=== PATIENT | female | born 1980 | race Caucasian/White ===

== ENCOUNTER 2016-08-05 23:34 | Emergency (ER) | payer OTHER ==
--- NOTE | ~2016-08-05 | ER ---
PATIENT'S NAME: CORBIN HERNANDEZ [facility] AGE: 36 Y [address] ROOM: [place] [address] LOCATION: [facility] ADMIT DATE: 08/05/2016 ER/Outpatient Report DISCHARGE DATE: 08/06/2016 FAMILY PHYSICIAN: Jane Hitchcock MD ATTENDING PHYSICIAN: Oswaldo Rodarte Admission date and time documented in the medical record. I saw the patient at 2350 hours. CHIEF COMPLAINT: Dysuria. HISTORY OF PRESENT ILLNESS: This is a 36-year-old female who comes in with dysuria since . She thinks she has possible urinary tract infection. She has had chronic UTIs since December of last year. No fever, chills, sweats, or rigors. No cough, colds, or flus. HOME MEDICATIONS: See attached medication list. ALLERGIES: NONE. SOCIAL HISTORY: Nonsmoker and nondrinker. SIGNIFICANT PAST MEDICAL HISTORY: Recurrent urinary tract infections, hypertension, and hypothyroidism. OPERATIONS: None. REVIEW OF SYSTEMS: All systems reviewed by me are negative with the exception of those discussed in the history of present illness. PHYSICAL EXAMINATION: VITAL SIGNS: Temperature 97.9 tympanic, pulse 94, respirations 16, blood pressure 143/80, and O2 saturation on room air is 94%. LUNGS: Clear. HEART: Regular. ABDOMEN: Soft, nontender. Good bowel tones. LABORATORY DATA: PATIENT'S NAME: CORBIN HERNANDEZ [facility] AGE: 36 Y [address] ROOM: [place] [address] LOCATION: [facility] ADMIT DATE: 08/05/2016 ER/Outpatient Report DISCHARGE DATE: 08/06/2016 FAMILY PHYSICIAN: Jane Hitchcock MD ATTENDING PHYSICIAN: Oswaldo Rodarte Urinalysis showed 5-10 wbc's, negative rbc's, 20-50 epithelial cells, few bacteria per high-powered field, positive nitrites on dipstick. IMPRESSION: Urinary tract infection. PLAN: The patient dismissed home. Observation. Activity as tolerated. Fluids. Empty bladder often. Continue present home medications and care. Pyridium 200 mg 3 times a day #18, Cipro 500 mg b.i.d. #14. Follow up with personal physician as needed. Discussion ensued with the patient concerning my findings and recommendations, she understands. MD CARLTON MATHIAS/modl /[id number] d: 08/06/16 0138 t: 08/06/16 1821, OUTPATIENT REPORT
[~2016-08-05 23:34] MED LIST: ACETAMINOPHEN325 MG PO; APNO TOP; FEOSOL325 MG PO; LEVOTHROID (S112 MCG PO; LEVOTHROID (S125 MCG PO; LEVOTHROID (S150 MCG PO; MOTRIN800 MG PO; PERCOCET 5-3251 EACH PO; PRENATAL 1+1)(P1 TAB PO; SURFAK240 MG PO
[2016-08-05 23:46] LABS: BLOOD URINE NEGATIVE /UL (NEGATIVE); COLOR URINE AMBER (YELLOW); GLUCOSE URINE NEGATIVE (NEGATIVE); KETONE URINE NEGATIVE (NEGATIVE); LEUKOCYTES URINE 25 /UL (NEGATIVE); NITRITE URINE POSITIVE (NEGATIVE); PROTEIN URINE NEGATIVE (NEGATIVE); SPEC GRAVITY URINE 1.015 (1.003-1.035); TURBIDITY URINE 1+ (CLEAR); UROBILINOGEN URINE 4 mg/dL (NORMAL)
[2016-08-05 23:53] LABS: BACTERIA URINE FEW (NEGATIVE); EPITHELIAL URINE 20-50 #/HPF (NEGATIVE); RBC URINE NEGATIVE #/HPF (NEGATIVE)
== END 2016-08-06 00:19 ==
LOC: GMED 23:34
PROVIDERS: Emergency Medicine
DX: N39.0 Urinary tract infection, site not specified (principal); I10 Essential (primary) hypertension; E03.9 Hypothyroidism, unspecified; Z79.899 Other long term (current) drug therapy

== ENCOUNTER → 2016-11-30 | Outpatient (CLI) | payer OTHER ==
--- NOTE | ~2016-11-30 | ECHO ---
Transthoracic Echocardiography Report (TTE) Demographics Patient Name CORBIN HERNANDEZ Date of Study 11/30/2016 E Patient Number [id number] Visit Number [id number] Date of 1980 Room Number Gender Female Number Age 36 year(s) Referring Naldo Avila MD Counter Hop [place] [employer] [facility], Physician RVT Physician Interpreting Bridgette Castaneda Route Deliverer Physician MD Supervising Ordering Naldo Avila MD, MD/MLP Physician Nurse Stress [employer] Conclusions Summary The estimated left ventricular ejection fraction is 60%. Normal left ventricle size and function. Normal right ventricle structure and function. No significant valvular abnormalities. Procedure Type of Study TTE procedure:2D Echocardiogram. Procedure Date Date: 11/30/2016 Start: 09:12 AM Study Location: Echo Lab Technical Quality: Adequate visualization Indications:Edema. Appropriate Use Criteria: 9 Patient Status: Routine Rhythm: NSR HR: 70 bpm BP: 142/89 mmHg M-Mode/2D Measurements LV Diastolic Dimension: 4.24 cm LV Systolic Dimension: 3.32 cm LV Septum Diastolic: 0.74 cm LV PW Diastolic: 0.77 cm AO Root Dimension: 2.4 cm Cardiac Output: 4.23 l/min LA Dimension: 3.6 cm LVOT: 1.9 cm LVOT VTI: 21.3 cm RV Base: 2.8 cm LV Stroke volume: 60.36 ml RV Length: 5.2 cm TAPSE: 18 cm TDI-S': 13 cm/s Doppler Measurements AV Peak Velocity: 1.26 m/s MV Peak E-Wave: 0.83 m/s AV Peak Gradient: 6.35 mmHg MV Peak A-Wave: 0.49 m/s LVOT Peak Velocity: 0.99 m/s MV E/A Ratio: 1.7 MV Deceleration Time: 158 msec E' Septal Velocity: 0.9 m/s PV Peak Velocity: 1.1 m/s E' Lateral Velocity: 1.5 m/s PV Peak Gradient: 4.84 mmHg Findings Left Ventricle Normal left ventricle size and function. Right Ventricle Normal right ventricle structure and function. Left Atrium Normal left atrial size. Right Atrium Normal right atrial size. Mitral Valve Normal mitral valve structure and function. Aortic Valve Normal aortic valve structure and function. Tricuspid Valve Normal tricuspid valve structure and function. Pulmonic Valve Normal pulmonic valve structure and function. Pericardial Effusion No evidence of pericardial effusion. Miscellaneous Visualized portions of the aortic root and ascending aorta appear normal in size. Pleural Effusion No evidence of pleural effusion. Contractility Score LV regional wall motion:(0-Non visualized 1-Normal 2-Hypokinesis 3-Akinesis 4-Dyskinesis 5-Aneurysm) Signature dtt: Tonya Angeles dtd: 11/30/16 0912 Physician Self Edit
== END | disposition disaster alternative care site (69) ==
LOC: GCAR 08:44
DX: R60.1 Generalized edema (principal)